=== PATIENT | female | born 1995 | race Two or more races ===

== ENCOUNTER 2017-11-25 21:15 | Emergency (ER) | payer OTHER ==
[2017-11-25 21:40] VITALS: BP 136/79
--- NOTE | 2017-11-25 22:25 | ER Document Report ---
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 Patient's tetanus immunization is currently up-to-date. Patient states she did not initially cleaned the wound. Associated Symptoms: Other - Finger laceration Exacerbated by: Movement Relieved by: Denies Similar symptoms previously: No Recently seen / treated by doctor: No - ROS ROS below otherwise negative: Yes Systems Reviewed and Negative: Yes All other systems reviewed and negative - CONSTITUTIONAL Constitutional: DENIES: Fever - MUSCULOSKELETAL Musculoskeletal: REPORTS: Extremity pain - DERM Skin Problems: Laceration Past Medical History - General Information source: Patient - Social History Smoking Status: Never Smoker Frequency of alcohol use: None Drug Abuse: None Occupation: [employer] Family History: Reviewed & Not Pertinent GI Medical History: Reports: Hx Gastroesophageal Reflux Disease Surgical Hx: Negative Vertical Provider Document - CONSTITUTIONAL Agree With Documented VS: Yes Exam Limitations: No Limitations General Appearance: WD/WN, No Apparent Distress - INFECTION CONTROL TRAVEL OUTSIDE OF THE [place] IN LAST 30 DAYS: No - HEENT HEENT: Atraumatic, Normocephalic - NECK Neck: Normal Inspection - RESPIRATORY Respiratory: No Respiratory Distress O2 Sat by Pulse Oximetry: 99 - CARDIOVASCULAR Pulses: Normal: Radial - MUSCULOSKELETAL/EXTREMETIES Musculoskeletal/Extremeties: MAEW - NEURO Level of Consciousness: Awake, Alert, Appropriate Motor/Sensory: No Motor Deficit - DERM Integumentary: Warm, Dry, Laceration - Superficial laceration to ulnar aspect of left fifth finger Course - Re-evaluation Re-evalutation: 11/25/17 22:51 Small devitalized flap of skin debrided from wound, patient tolerated well - Vital Signs Vital signs: Temp Pulse Resp BP Pulse Ox 98.6 F 102 H 16 136/79 H 99 11/25/17 21:15 11/25/17 21:15 11/25/17 21:15 11/25/17 21:15 11/25/17 21:15 Discharge - Discharge Clinical Impression: Finger laceration Qualifiers: Encounter type: initial encounter Finger: little finger Damage to nail status: without damage Foreign body presence: without foreign body Laterality: left Qualified Code(s): S61.217A - Laceration without foreign body of left little finger without damage to nail, initial encounter Condition: Stable Disposition: HOME, SELF-CARE Instructions: Dressing Instructions for Open Wounds ([facility]), Soap Cleansing ([facility]) Additional Instructions: Return immediately for any new or worsening symptoms Followup with your primary care provider, call tomorrow to make a followup appointment Keep wound covered as it continues to heal Forms: Return to Work Referrals: FERCHO ABEL PA [NO LOCAL MD] - Follow up as needed
== END 2017-11-25 23:21 | disposition home or self-care (01) ==
LOC: ER 21:15
DX: S61.217A Laceration without foreign body of left little finger without damage to nail, initial encounter (principal); W26.8XXA Contact with other sharp object(s), not elsewhere classified, initial encounter; Y93.89 Activity, other specified; Y92.512 Supermarket, store or market as the place of occurrence of the external cause; Y99.0 Civilian activity done for income or pay
CPT/HCPCS: 99282